=== PATIENT | male | born 1930 | race Caucasian/White ===

== ENCOUNTER 2018-04-17 19:27 | Emergency (ER) | payer OTHER ==
[~2018-04-17] VITALS: Ht 175.3 cm; Wt 83.9 kg
[~2018-04-17 19:27] MED LIST: ABIR250T PO; B-COCAP4 OR; CALCCAP OR; COEN100C15 PO; DILT180C49 PO; DOCU-94 PO; HYDR100T22 PO; LEUP22.52 IM; LEVO-140 PO; LORA2TAB89 PO; MIRT30TA PO; NITR0.4S29 SL; OME20T PO; OMEG1CAP59 PO; ONDA-101 PO; PERCOT PO; PRE5T GT; SENN1TAB14 PO; SIMV10TA84 PO
[2018-04-17] MEDS ORDERED: ALBUTEROL SULF 2.5 MG/0.5ML(0.5%) NEB SOLN ONE (19:49)
[2018-04-17] MEDS ORDERED: ALBUTEROL SULF 2.5 MG/0.5ML(0.5%) NEB SOLN NEB ONE (20:00)
[2018-04-17 20:57] LABS: Basophils # (auto) 0.1 uL; Eosinophils # (auto) 0.1 uL; Hemoglobin 11.9 g/dL (13.5-17.5); Red Cell Distribution Width 16.2 % (11.8-14.3)
[2018-04-17 21:07] LABS: Lymphocytes % (auto) 9.2 % (10.0-50.0); Monocytes % (auto) 3.7 % (0.0-12.0); White Blood Cell 16.6 10^3/uL (4.4-10.8)
[2018-04-17 21:08] LABS: Basophils % (auto) 0.4 % (0.0-2.0); Eosinophils % (auto) 0.7 % (0.0-7.0); Hematocrit 36.8 % (41.0-53.0); Lymphocytes # (auto) 1.5 uL; Mean Corpuscular Volume 104.8 fL (80.0-100.0); Monocytes # (auto) 0.6 uL; Neutrophils # (auto) 14.2 uL; Nucleated Red Blood Cells % 0.2 %; Red Blood Cells 3.52 10^6/uL (4.5-5.90)
[2018-04-17 21:09] LABS: INR 1.13 (0.9-1.15); Mean Corpuscular Hemoglobin 33.9 pg (28.0-32.0); Mean Corpuscular Hgb Conc. 32.4 g/dL (32.0-36.0); Partial Thromboplastin Time 28.3 sec (23.78-33.04); Platelet Count (auto) 156 10^3/uL (140-450)
[2018-04-17 21:17] LABS: Albumin 3.5 g/dL (3.4-5.0); Anion Gap 9 (5-15); Blood Urea Nitrogen 11 mg/dL (7-18); Calcium 8.6 mg/dL (8.5-10.1); Carbon Dioxide 27 mmol/L (21-32); Chloride 98 mmol/L (98-107); Glucose 154 mg/dL (74-106); Potassium 3.1 mmol/L (3.5-5.1); Sodium 134 mmol/L (136-145)
[2018-04-17 21:19] LABS: Alanine Aminotransferase 26 U/L (16-61); Aspartate Aminotransferase 32 U/L (15-37); BUN/Creatinine Ratio 16.2; GFR African American 142 mL/min; GFR Non-African American 117 mL/min
[2018-04-17 21:23] LABS: Alkaline Phosphatase 104 U/L (45-117); Bilirubin, Total 0.9 mg/dL (0.2-1.0); Total Protein 7.7 g/dL (6.4-8.2)
[2018-04-17 22:10] VITALS: BP 116/65
[2018-04-17] MEDS ORDERED: IOHEXOL 350 MG/ML 100ML IJ ONE (22:16)
[2018-04-17] MEDS ORDERED: FUROSEMIDE 20 MG/2 ML VIAL IV ONE (23:00)
[2018-04-17] MEDS ORDERED: POTASSIUM CHL 20 Meq TABLET PO ONE (23:00)
[2018-04-18 00:10] VITALS: BP 106/63
[2018-04-18 02:00] VITALS: BP 128/91
[2018-04-18] MEDS ORDERED: cefTRIAXone 1GM/50ML D5W 50 ML IV ONE (03:15)
[2018-04-18] MEDS ORDERED: NTG 0.1MG/HR TOPICAL PATCH TD ONE (03:15)
[2018-04-18 04:00] VITALS: BP 130/93
[2018-04-18] MEDS ORDERED: NITROGLYCERIN 0.2MG/HR TOPICAL PATCH TD ONE ×2 (04:29→04:35)
[2018-04-18 06:35] VITALS: BP 175/94
== END 2018-04-18 06:49 | disposition short-term general hospital (02) ==
LOC: EDBD 19:27 → ER 19:27
DX: I11.0 Hypertensive heart disease with heart failure (principal); I50.9 Heart failure, unspecified; J44.9 Chronic obstructive pulmonary disease, unspecified; I25.2 Old myocardial infarction; D72.829 Elevated white blood cell count, unspecified; E87.6 Hypokalemia; J90 Pleural effusion, not elsewhere classified; R73.9 Hyperglycemia, unspecified; I48.91 Unspecified atrial fibrillation; Z85.46 Personal history of malignant neoplasm of prostate
CPT/HCPCS: 36415; 36600; 71045; 71275; 80053; 82805; 83880; 84484; 85025; 85379; 85610; 85730; 93005; 94640; 94660; 96374; 99285; J1940; J7040; J7611; Q9967